=== PATIENT | male | born 1995 | race Two or more races ===

== ENCOUNTER 2017-10-19 21:43 | Emergency (ER) | payer SELFPAY ==
[~2017-10-19] VITALS: Ht 175.3 cm; Wt 65.4 kg
[2017-10-20 00:41] VITALS: BP 121/83
== END 2017-10-20 00:41 | disposition home or self-care (01) ==
LOC: ED 21:43
DX: L03.116 Cellulitis of left lower limb (principal)
CPT/HCPCS: J1885; Q0092